=== PATIENT | female | born 1970 | race Caucasian/White ===

== ENCOUNTER 2017-01-23 03:22 | Emergency (ER) | payer OTHER ==
[~2017-01-23 03:22] MED LIST: ASPIR-LOW81 MG PO; ERGOCALCIF50000 UNIT PO; LEVAQUIN750 MG PO; NICOTINE PATCH1 EAC2 TD; VENTOLIN HFA18 GM IH; VITAMIN D400 UNIT PO
== END 2017-01-23 07:30 ==
LOC: EDBD 03:22 → TRA 03:22
DX: S21.131A Puncture wound without foreign body of right front wall of thorax without penetration into thoracic cavity, initial encounter (principal); I46.9 Cardiac arrest, cause unspecified; Y24.9XXA Unspecified firearm discharge, undetermined intent, initial encounter; Y92.009 Unspecified place in unspecified non-institutional (private) residence as the place of occurrence of the external cause
CPT/HCPCS: 71010; 80048; 81003; 82150; 83690; 84702; 85025; 86850; 86900; 86901; 99281; 99285; G0480